=== PATIENT | male | born 1975 | race American Indian/Alaskan Native ===

== ENCOUNTER 2018-12-04 14:30 | Inpatient (IN) | payer MEDICARE ==
--- NOTE | 2018-12-04 16:47 | XRay Report ---
FINAL REPORT EXAM: XR NECK SOFT TISSUE HISTORY: foreign body ingestion TECHNIQUE: Frontal and lateral views of the neck Comparison: None FINDINGS: There is no evidence of radiopaque foreign body. There is the appearance of increased thickness of the epiglottis. Whether not this is real or artifac t is unclear. There is the appearance of increased soft tissue density in the region of the floor of the mouth. A m ass in this region needs to be considered. The bony structures are notable for ossification of the anterior longitudinal ligament and multiple l evels. IMPRESSION: 1. No plain film evidence of radiopaque foreign body. 2. Appearance of increased soft tissue density in the region of the floor of the mouth and increased thickness of the epiglottis. CT of the neck would be helpful for further evaluation of these findings.
--- NOTE | 2018-12-04 16:52 | XRay Report ---
FINAL REPORT EXAM: XR ABD SERIES W CXR 1V HISTORY: foreign body patient says he swallowed a pencil. TECHNIQUE: Frontal view of the chest and frontal views of the abdomen and pelvis in the supine and u pright positions. Comparison: X-ray neck also performed today FINDINGS: X-ray chest: There is no evidence of infiltrate, pneumothorax or pleural fluid collection. The cardiac silhouette appears to be enlarged. This may be exaggerated by portable technique. The thoracic aorta and bony structures are unremarkable. X-ray abdomen and pelvis: There is no evidence of radiopaque foreign body. The bowel gas pattern is nonspecific with air in mildly distended loops of small bowel and colon with air-fluid levels on the upright view. There is a moderate to marked amount of stool in the ascending colon and in the rectum. Scattered air-fluid levels are demonstrated on the upright view. There is no evidence of pneumoperitoneum. IMPRESSION: 1. No evidence of an acute pulmonary process. 2. Nonspecific bowel gas pattern. 3. No evidence of radiopaque foreign body. 4. Moderate to marked amount of stool in the ascending colon and rectum.
--- NOTE | 2018-12-04 17:41 | Emergency Department Report ---
- General Chief complaint: Skin/Abscess/Foreign Body Stated complaint: MENTAL HEALTH Time Seen by Provider: 12/04/18 16:24 Source: patient, EMS Mode of arrival: Stretcher Limitations: No Limitations - History of Present Illness Initial comments: 44-year-old male with a past medical history hypertension, schizophrenia, and bipolar disorder presents to the Hospital stating that he swallowed a golf pencil within the last hour prior to arrival. It was a short golf pencil without an eraser. Patient states he swallowed it because he was mad. He is currently undergoing psychiatric treatment at [facility] for suicidal ideation with plan. Patient complains of a sore throat. He is able to speak clearly, denies shortness of breath, able to swallow his secretions. He also complains of some mild epigastric pain. - Related Data Allergies Allergy/AdvReac Type Severity Reaction Status Date / Time No Known Allergies Allergy Verified 12/04/18 15:21 Abscess Boil HPI - HPI Chief Complaint: Skin/Abscess/Foreign Body Stated Complaint: MENTAL HEALTH Time Seen by Provider: 12/04/18 16:24 Allergies/Adverse Reactions: Allergies Allergy/AdvReac Type Severity Reaction Status Date / Time No Known Allergies Allergy Verified 12/04/18 15:21 ED Review of Systems ROS: Stated complaint: MENTAL HEALTH Other details as noted in HPI Comment: All other systems reviewed and negative ED Past Medical Hx - Past Medical History Previous Medical History?: Yes Hx Hypertension: Yes Hx Psychiatric Treatment: Yes - Social History Smoking Status: Never Smoker Substance Use Type: None ED Physical Exam - General Limitations: No Limitations - Other Other exam information: General: No limitations, patient is alert in no acute distress Head exam: Atraumatic, normocephalic Eyes exam: Normal appearance, pupils equal reactive to light, extraocular movements intact ENT: Moist mucous membrane, normal oropharynx Neck exam: Normal inspection, full range of motion, no meningismus, no stridor Respiratory exam: Clear to auscultation bilateral, no wheezes, rales, crackles Cardiovascular: Normal rate and rhythm, normal heart sounds Abdomen: Soft, nondistended, mild epigastric tenderness, with normal bowel sounds, no rebound, or guarding Extremity: Full range of motion normal inspection no deformity Back: Normal Inspection, full range of motion, no tenderness Neurologic: Alert, oriented x3, cranial nerves intact, no motor or sensory deficit Psychiatric: normal affect, normal mood Skin: Warm, dry, intact ED Course Vital Signs 12/04/18 12/04/18 12/04/18 14:41 16:44 17:33 Temperature 98.5 F Pulse Rate 86 82 76 Respiratory 16 18 18 Rate Blood Pressure 149/90 Blood Pressure 172/111 176/118 [Right] O2 Sat by Pulse 98 99 96 Oximetry 12/04/18 12/04/18 12/04/18 19:15 20:06 20:16 Temperature 98.7 F 98.3 F 98.7 F Pulse Rate 98 H 63 98 H Respiratory 13 18 13 Rate Blood Pressure 163/96 163/103 163/96 Blood Pressure [Right] O2 Sat by Pulse 100 100 100 Oximetry 12/04/18 12/04/18 12/04/18 20:21 20:36 20:53 Temperature Pulse Rate 54 L 60 52 L Respiratory 23 26 H 24 Rate Blood Pressure 181/128 138/85 156/98 Blood Pressure [Right] O2 Sat by Pulse 100 100 Oximetry 12/04/18 12/04/18 12/04/18 21:04 21:16 21:30 Temperature Pulse Rate 53 L 61 58 L Respiratory 13 16 16 Rate Blood Pressure 157/110 157/110 157/110 Blood Pressure [Right] O2 Sat by Pulse Oximetry 12/04/18 12/04/18 12/04/18 21:46 22:00 22:16 Temperature Pulse Rate 60 61 69 Respiratory 22 19 26 H Rate Blood Pressure 151/112 151/112 158/100 Blood Pressure [Right] O2 Sat by Pulse Oximetry 12/04/18 12/04/18 12/04/18 22:30 22:46 23:00 Temperature Pulse Rate 68 83 92 H Respiratory 14 21 26 H Rate Blood Pressure 158/100 158/100 167/99 Blood Pressure [Right] O2 Sat by Pulse Oximetry - Consultations Consultation #2: 12/04/18 19:16 Dr carrillo contacted prior to ct imaging, endoscopy team at the bedside Consultation #3: 12/04/18 20:17 case d/w Dr Noe gen surgeon. will consult - EJ/Peripheral Line Neck R Time Out Performed: Yes Indications: nurses unable to establis Skin Cleansed in Sterile Fashion: Yes Size: 20 Dressing Placed: Tegaderm, tape Patient Tolerated Procedure: well ED Medical Decision Making - Lab Data Result diagrams: 12/04/18 18:27 12/04/18 18:27 Lab Results 12/04/18 12/04/18 Range/Units 18:27 18:27 WBC 4.4 L (4.5-11.0) K/mm3 RBC 4.57 (3.65-5.03) M/mm3 Hgb 12.5 (11.8-15.2) gm/dl Hct 37.6 (35.5-45.6) % MCV 82 L (84-94) fl MCH 28 (28-32) pg MCHC 33 (32-34) % RDW 16.4 H (13.2-15.2) % Plt Count 184 (140-440) K/mm3 Lymph % (Auto) 36.4 H (13.4-35.0) % [place] % (Auto) 9.8 H (0.0-7.3) % Eos % (Auto) 2.2 (0.0-4.3) % Baso % (Auto) 0.6 (0.0-1.8) % Lymph # 1.6 (1.2-5.4) K/mm3 [place] # 0.4 (0.0-0.8) K/mm3 Eos # 0.1 (0.0-0.4) K/mm3 Baso # 0.0 (0.0-0.1) K/mm3 Seg Neutrophils % 51.0 (40.0-70.0) % Seg Neutrophils # 2.2 (1.8-7.7) K/mm3 Sodium 140 (137-145) mmol/L Potassium 3.8 (3.6-5.0) mmol/L Chloride 102.5 (98-107) mmol/L Carbon Dioxide 27 (22-30) mmol/L Anion Gap 14 mmol/L BUN 10 (9-20) mg/dL Creatinine 1.2 (0.8-1.5) mg/dL Estimated GFR > 60 ml/min BUN/Creatinine Ratio 8 % Glucose 81 (75-100) mg/dL Calcium 8.8 (8.4-10.2) mg/dL - Radiology Data Radiology results: report reviewed FINAL REPORT EXAM: XR NECK SOFT TISSUE HISTORY: foreign body ingestion TECHNIQUE: Frontal and lateral views of the neck Comparison: None FINDINGS: There is no evidence of radiopaque foreign body. There is the appearance of increased thickness of the epiglottis. Whether not this is real or artifact is unclear. There is the appearance of increased soft tissue density in the region of the floor of the mouth. A mass in this region needs to be considered. The bony structures are notable for ossification of the anterior longitudinal ligament and multiple levels. IMPRESSION: 1. No plain film evidence of radiopaque foreign body. 2. Appearance of increased soft tissue density in the region of the floor of the mouth and increased thickness of the epiglottis. CT of the neck would be helpful for further evaluation of these findings. FINAL REPORT EXAM: XR ABD SERIES W CXR 1V HISTORY: foreign body patient says he swallowed a pencil. TECHNIQUE: Frontal view of the chest and frontal views of the abdomen and pelvis in the supine and upright positions. Comparison: X-ray neck also performed today FINDINGS: X-ray chest: There is no evidence of infiltrate, pneumothorax or pleural fluid collection. The cardiac silhouette appears to be enlarged. This may be exaggerated by portable technique. The thoracic aorta and bony structures are unremarkable. X-ray abdomen and pelvis: There is no evidence of radiopaque foreign body. The bowel gas pattern is nonspecific with air in mildly distended loops of small bowel and colon with air-fluid levels on the upright view. There is a moderate to marked amount of stool in the ascending colon and in the rectum. Scattered air-fluid levels are demonstrated on the upright view. There is no evidence of pneumoperitoneum. IMPRESSION: 1. No evidence of an acute pulmonary process. 2. Nonspecific bowel gas pattern. 3. No evidence of radiopaque foreign body. 4. Moderate to marked amount of stool in the ascending colon and rectum. FINAL REPORT EXAM: CT NECK WO CON HISTORY: swallowed a pencil, neck pain TECHNIQUE: Axial helical imaging through the neck with sagittal and coronal reformatted images obtained Comparison: X-ray neck and CT chest also performed today FINDINGS: There is no evidence of a cervical or facial mass or radiopaque foreign body. Th e There is no evidence of compromise of the airway. The epiglottis and aryepiglottic folds are normal thickness. The bony structures are notable for spondylitic change of the cervical spine with multiple level canal and foraminal stenosis. There is [id number] right maxillary sinus mucosal thickening. IMPRESSION: 1. No evidence of mass or radiopaque foreign body in the face/neck. 2. Cervical spondylosis. 3. Right maxillary sinus mucosal thickening. FINAL REPORT EXAM: CT CHEST WO CON HISTORY: swallowed a pencil TECHNIQUE: Axial helical imaging through the chest with sagittal and coronal reformatted images obtained. Comparison: X-ray chest also performed today FINDINGS: There is a small cluster of areas of nodular consolidation in the right upper lobe. At least 1 of these appears to demonstrate calcification. There is no evidence of pneumothorax or pleural fluid collection. The trachea and bronchi are patent. Heart appears to be enlarged. There is no evidence of intrathoracic adenopathy on this study without contrast. The visualized portion the upper abdomen is unremarkable. The bony structures are unremarkable. There are mildly prominent bilateral axillary lymph nodes. These are nonspecific in appearance but are most likely inflammatory in nature. There is no evidence of radiopaque foreign body. IMPRESSION: 1. No evidence of radiopaque foreign body. 2. Small cluster of pulmonary nodules in the right upper lobe at least 1 of which appears to demonstrate calcification. Whether not this is acute or chronic is unclear. Comparison with previous CT chest is recommended. Alternatively short-term follow-up CT chest would be helpful to evaluate for the static or dynamic nature of this finding. FINAL REPORT FINAL REPORT EXAM: CT ABDOMEN PELVIS WO CON HISTORY: swallowed a pencil TECHNIQUE: Axial helical imaging through the abdomen and pelvis with sagittal an d coronal reformatted images obtained. Comparison: None FINDINGS: The lung bases are notable for a cluster of nodular densities in the right upper lobe as was demonstrated on the recent CT. The liver, spleen, pancreas, kidneys and adrenal glands are unremarkable in appearance. The gallbladder is mildly distended and unremarkable. The bowel is normal caliber. The appendix is normal caliber. There is a moderate to marked amount of stool in the rectosigmoid colon. There is a moderate amount of stool in the ascending colon. There is a linear radiopaque foreign body in the 2nd portion the duodenum at the beginning of the duodenal sweep that measures approximately 4.9 centimeters by a 0.3 centimeters by 0.3 centimeters in size. There is linear radiopaque foreign body in the proximal to mid ileum that measures approximately 2.8 centimeters by 0.3 centimeters x 0.3 centimeters in size. There is no evidence of pneumoperitoneum or free fluid. The abdominal aorta is normal caliber. There is no evidence of pathologic intra-abdominal adenopathy by CT size criteria. The urinary bladder is moderately distended. There appears to be mild increased thickness of the urinary bladder wall. The prostate gland appears to be mildly enlarged (4.5 centimeters). The bony structures are unremarkable. IMPRESSION: 1. Two radiopaque foreign bodies in the small bowel. The larger radiopaque foreign body is the 2nd portion of the duodenum. The more distal radiopaque foreign body is in the proximal to mid ileum. There is no imaging evidence of bowel perforation. The above finding was discussed with Dr. Leiva the the at 7:23 p.m. 2. Moderate to marked amount of stool in the rectosigmoid colon. 3. Appearance of mild increased thickness of the urinary bladder wall and mild increased size of the prostate gland. - Medical Decision Making Dr Carrillo was able to remove the duodenum foreign body via endoscopy at the bedside. Recommends admission and surgery consultation. See his note. Patient presented to the ED was signed [id number] for suicidal ideation. It was originally signed on November 29. I resigned a 1013 for admission. - Differential Diagnosis retained foreign body, abrasion Critical Care Time: No Critical care attestation.: If time is entered above; I have spent that time in minutes in the direct care of this critically ill patient, excluding procedure time. ED Disposition Clinical Impression: Foreign body alimentary tract, Suicidal ideation, Schizophrenia, Bipolar disorder, Hypertension, Foreign body, swallowed Disposition: -09 OP ADMIT IP TO THIS HOSP Is pt being admited?: Yes Condition: Stable Time of Disposition: 20:30 (Dr. Cao/[facility])
[2018-12-04] MEDS ORDERED: NACL 0.9% 1000 ML 1,000 ML ONE (18:42)
[2018-12-04] MEDS ORDERED: WATER FOR IRRIG STERILE IR ONE (18:43)
[2018-12-04] MEDS ORDERED: XYLOCAINE 2% INFILTRATI ONE (18:57)
[2018-12-04] MEDS ORDERED: DIPRIVAN 10 MG/ML IV ONE ×2 (18:57)
[2018-12-04] MEDS ORDERED: NACL 0.9% 1000 ML 1,000 ML IV SCH (19:00)
--- NOTE | 2018-12-04 19:04 | Cat Scan Report ---
FINAL REPORT EXAM: CT CHEST WO CON HISTORY: swallowed a pencil TECHNIQUE: Axial helical imaging through the chest with sagittal and coronal reformatted images obta ined. Comparison: X-ray chest also performed today FINDINGS: There is a small cluster of areas of nodular consolidation in the right upper lobe. At least 1 of the se appears to demonstrate calcification. There is no evidence of pneumothorax or pleural fluid collection. The trachea and bronchi are patent. Heart appears to be enlarged. There is no evidence of intrathoracic adenopathy on this study without contrast. The visualized portion the upper abdomen is unremarkable. The bony structures are unremarkable. There are mildly prominent bilateral axillary lymph nodes. These are nonspecific in appearance but ar e most likely inflammatory in nature. There is no evidence of radiopaque foreign body. IMPRESSION: 1. No evidence of radiopaque foreign body. 2. Small cluster of pulmonary nodules in the right upper lobe at least 1 of which appears to demonstr ate calcification. Whether not this is acute or chronic is unclear. Comparison with previous CT chest is recommended. Alternatively short-term follow-up CT chest would be helpful to evaluate for the sta tic or dynamic nature of this finding.
[2018-12-04 19:06] LABS: Basophils % (Auto) 0.6 % (0.0-1.8); Eosinophils # (Auto) 0.1 K/mm3 (0.0-0.4); Eosinophils % (Auto) 2.2 % (0.0-4.3); Hematocrit 37.6 % (35.5-45.6); Hemoglobin 12.5 gm/dl (11.8-15.2); Lymphocytes # (Auto) 1.6 K/mm3 (1.2-5.4); Lymphocytes % (Auto) 36.4 % (13.4-35.0); Mean Corpuscular HGB Conc 33 % (32-34); Mean Corpuscular Volume 82 fl (84-94); Monocytes # (Auto) 0.4 K/mm3 (0.0-0.8); Monocytes % (Auto) 9.8 % (0.0-7.3); Platelet Count 184 K/mm3 (140-440); Red Blood Count 4.57 M/mm3 (3.65-5.03); Red Cell Distribution Width 16.4 % (13.2-15.2)
[2018-12-04 19:17] LABS: BUN/Creatinine Ratio 8; Blood Urea Nitrogen 10 mg/dL (9-20); Calcium 8.8 mg/dL (8.4-10.2); Hemolysis Index 8
--- NOTE | 2018-12-04 19:23 | Gastroenterology Consultation ---
History of Present Illness - Reason for Consult Consult date: 12/04/18 Foreign Body Ingestion Requesting physician: STEPHANIE CUENCA - History of Present Illness The patient is a 43 yo male involuntarily committed today to [place] for schizophrenia/threat of self-harm. He states that 1 hour prior to transfer to [facility] he ingested a pencil fragment. He is an unreliable historian, because there are at least 2 objects in the small bowel, but states he has only ingested one pencil fragment. He has no abdominal pain, N/V, fevers, or bloody emesis. He says this has happened before, but no records in [facility] for FB ingestion/removal. Past History Past Medical History: other (Schizophrenia) Past Surgical History: No surgical history Social history: smoking. denies: alcohol abuse Family history: no significant family history Medications and Allergies Allergies Allergy/AdvReac Type Severity Reaction Status Date / Time No Known Allergies Allergy Verified 12/04/18 15:21 Active Meds: Active Medications Sodium Chloride (Nacl 0.9% 1000 Ml) 1,000 mls @ 50 mls/hr IV DIRECT SANDEEP I HAVE REVIEWED AND RECONCILED MEDICATIONS Review of Systems - Review of Systems ROS unobtainable: due to mental status Exam - Constitutional Vital Signs: Temp Pulse Resp BP Pulse Ox 98.5 F 76 18 176/118 96 12/04/18 14:41 12/04/18 17:33 12/04/18 17:33 12/04/18 17:33 12/04/18 17:33 General appearance: no acute distress - EENT Eyes: PERRL, EOM intact ENT: poor dentition, no thrush, no ulcerations - Neck Neck: supple, normal ROM - Respiratory Respiratory effort: normal Respiratory: bilateral: CTA - Cardiovascular Rhythm: regular Heart Sounds: Present: S1 & S2 Extremities: no ischemia, No edema - Gastrointestinal General gastrointestinal: Present: soft, non-tender, non-distended - Neurologic Neurological: oriented to person - Psychiatric Psychiatric: no intact judgment & insight - Labs CBC & Chem 7: 12/04/18 18:27 12/04/18 18:27 Lab Results: Laboratory Results - last 24 hr 12/04/18 12/04/18 18:27 18:27 WBC 4.4 L RBC 4.57 Hgb 12.5 Hct 37.6 MCV 82 L MCH 28 MCHC 33 RDW 16.4 H Plt Count 184 Lymph % (Auto) 36.4 H [place] % (Auto) 9.8 H Eos % (Auto) 2.2 Baso % (Auto) 0.6 Lymph # 1.6 [place] # 0.4 Eos # 0.1 Baso # 0.0 Seg Neutrophils % 51.0 Seg Neutrophils # 2.2 Sodium 140 Potassium 3.8 Chloride 102.5 Carbon Dioxide 27 Anion Gap 14 BUN 10 Creatinine 1.2 Estimated GFR > 60 BUN/Creatinine Ratio 8 Glucose 81 Calcium 8.8 Assessment and Plan - Patient Problems (1) Foreign body alimentary tract Current Visit: Yes Status: Acute Plan to address problem: - Will attempt EGD with removal of proximal (duodenal) object, but distal object will need to pass (or be surgically removed). - See Op Report for recommendations re: bowel prep/surgical consult/etc. - NPO for now, and IV fluid hydration.
--- NOTE | 2018-12-04 19:43 | Cat Scan Report ---
FINAL REPORT EXAM: CT ABDOMEN PELVIS WO CON HISTORY: swallowed a pencil TECHNIQUE: Axial helical imaging through the abdomen and pelvis with sagittal and coronal reformatte d images obtained. Comparison: None FINDINGS: The lung bases are notable for a cluster of nodular densities in the right upper lobe as was demonstr ated on the recent CT. The liver, spleen, pancreas, kidneys and adrenal glands are unremarkable in appearance. The gallbladder is mildly distended and unremarkable. The bowel is normal caliber. The appendix is normal caliber. There is a moderate to marked amount of stool in the rectosigmoid colon. There is a moderate amount of stool in the ascending colon. There is a linear radiopaque foreign body in the 2nd portion the duodenum at the beginning of the duo denal sweep that measures approximately 4.9 centimeters by a 0.3 centimeters by 0.3 centimeters in si ze. There is linear radiopaque foreign body in the proximal to mid ileum that measures approximately 2.8 centimeters by 0.3 centimeters x 0.3 centimeters in size. There is no evidence of pneumoperitoneum or free fluid. The abdominal aorta is normal caliber. There is no evidence of pathologic intra-abdominal adenopathy by CT size criteria. The urinary bladder is moderately distended. There appears to be mild increased thickness of the urin troy bladder wall. The prostate gland appears to be mildly enlarged (4.5 centimeters). The bony structures are unremarkable. IMPRESSION: 1. Two radiopaque foreign bodies in the small bowel. The larger radiopaque foreign body is the 2nd po rtion of the duodenum. The more distal radiopaque foreign body is in the proximal to mid ileum. There is no imaging evidence of bowel perforation. The above finding was discussed with Dr. Benjamin at 7:23 p.m. 2. Moderate to marked amount of stool in the rectosigmoid colon. 3. Appearance of mild increased thickness of the urinary bladder wall and mild increased size of the prostate gland.
--- NOTE | 2018-12-04 20:08 | Cat Scan Report ---
FINAL REPORT EXAM: CT NECK WO CON HISTORY: swallowed a pencil, neck pain TECHNIQUE: Axial helical imaging through the neck with sagittal and coronal reformatted images obtai batsheva Comparison: X-ray neck and CT chest also performed today FINDINGS: There is no evidence of a cervical or facial mass or radiopaque foreign body. The There is no evidence of compromise of the airway. The epiglottis and aryepiglottic folds are normal thickness. The bony structures are notable for spondylitic change of the cervical spine with multiple level tatiana l and foraminal stenosis. There is [id number] right maxillary sinus mucosal thickening. IMPRESSION: 1. No evidence of mass or radiopaque foreign body in the face/neck. 2. Cervical spondylosis. 3. Right maxillary sinus mucosal thickening.
--- NOTE | 2018-12-04 20:12 | Post Operative Note ---
Pre-op diagnosis: Foreign body ingestion Post-op diagnosis: same Findings: 1. Partial pencil in 4th portion of duodenum (sharp end and approx 3 inches); bitten off at end - Removed with snare in one piece without trauma 2. Otherwise normal upper GI tract Procedure: EGD with foreign body removal Anesthesia: MAC Surgeon: KOLBY WALDEN Estimated blood loss: none Pathology: none Specimen disposition: other (N/A) Condition: stable Disposition: observation (Recs: 1. 23 hour obs admit. 2. Bowel prep with magne sium citrate. 3. Clear liquid diet to promote motility. 4. Surgical consult. 5. Repeat CT in 24 hours to see if long/sharp object (?rest of pencil versus writing instrument) has passed. 6. Senakot for severe constipation.)
[2018-12-04] MEDS ORDERED: CITRATE OF MAGNESIA PO ONE (20:17)
--- NOTE | 2018-12-04 20:23 | Anesthesia Consultation ---
Anesthesia Consult and Med Hx Date of service: 12/04/18 - Airway Anesthetic Teeth Evaluation: Good ROM Head & Neck: Adequate Mental/Hyoid Distance: Inadequate Mallampati Class: Class III Intubation Access Assessment: Possibly Difficult - Pulmonary Exam CTA: Yes - Cardiac Exam Cardiac Exam: RRR - Pre-Operative Health Status ASA Pre-Surgery Classification: ASA3, Emergency Proposed Anesthetic Plan: MAC - Pulmonary Hx Respiratory Symptoms: No SOB: No - Cardiovascular System Hx Hypertension: Yes Hx Heart Attack/AMI: No - Central Nervous System Hx Seizures: No CVA: No Hx Psychiatric Problems: Yes (schizophrenia; suicidal ideations) - Endocrine Hx Renal Disease: No Hx Liver Disease: No Hx Insulin Dependent Diabetes: No Hx Non-Insulin Dependent Diabetes: No - Other Systems Hx Obesity: Yes - Additional Comments Anesthesia Medical History Comments: Plan EGD for foreign body ingestion (pencil) with possible second object further along in GI tract. Patient is unvoluntarily admitted to psych facility and unable to consent for himself. Unable to reach NOK (mother) after multiple attempts. Agree with proceduralist that case is emergent and will proceed with MAC anesthetic. Anesthetic plan discussed with patient.
--- NOTE | 2018-12-04 20:24 | Anesthesia Day of Surgery ---
Anesthesia Day of Surgery - Day of Surgery Patient Examined: Yes Patient H&P Reviewed: Yes Patient is NPO: Yes
--- NOTE | 2018-12-04 20:57 | Operative Report ---
PROCEDURE PERFORMED: Esophagogastroduodenoscopy with foreign body removal. PREOPERATIVE DIAGNOSIS: Foreign body ingestion. POSTOPERATIVE DIAGNOSES: Foreign body ingestion. ENDOSCOPIST: Avi Minor MD INSTRUMENT: Obsorb video endoscope. MEDICATIONS: MAC anesthesia by Anesthesia Services. COMPLICATIONS: No apparent complications. ESTIMATED BLOOD LOSS: Minimal. SPECIMENS: No specimen sent to laboratory, but a foreign body was removed from the patient. IMPLANTS: None. ASSISTANTS: None. CONDITION AT COMPLETION: Stable. TECHNIQUE: The procedure was done as an emergency unconsented procedure because no family was available and the patient was poorly controlled, schizophrenic, currently under 1013/involuntary committal to [facility]. The patient was placed in left lateral decubitus position. The above sedative medications were given. His vital signs remained stable throughout the procedure. The upper endoscope was advanced from the mouth to the third portion of the duodenum under direct visualization. At that point, part of a pencil could be visualized at the junction of the fourth portion and the proximal jejunum. We then exchanged for a pediatric colonoscope and this was advanced into the fourth portion of the duodenum. The tip of the pencil was grasped using a snare and removed through the upper GI tract in one piece. The procedure was then terminated. FINDINGS: 1. A partial pencil fragment noted in the fourth portion of the duodenum (the pencil fragment was from the sharp and approximately 3 inches proximal); the end of the pencil appeared to have been bitten off. Subsequently, the pencil was removed in one piece with using a snare device without trauma. 2. Otherwise, normal upper GI tract. RECOMMENDATIONS: 1. 23-hour observation admission. 2. Bowel prep with magnesium citrate. 3. Clear liquid diet to promote intestinal motility. 4. Surgical consult. 5. Repeat CT scan in 24 hours to see if the long/sharp object in the distal jejunum has passed into the colon; this was questionably the rest of the pencil versus a separate writing instrument. 6. Senokot daily therapy for chronic constipation. JOB# [id number] KHARI/NTS
[2018-12-04] MEDS: SENOKOT S PO SCH (21:49)
[2018-12-04] MEDS ORDERED: APRESOLINE ONE (22:19)
[2018-12-04] MEDS ORDERED: ZOFRAN IV PRN (22:22)
[2018-12-04] MEDS ORDERED: APRESOLINE IV ONE (22:23)
[2018-12-04] MEDS ORDERED: ATIVAN IV ONE (23:01)
[2018-12-04] MEDS ORDERED: ATIVAN ONE (23:05)
--- NOTE | 2018-12-05 06:13 | History and Physical Report ---
CHIEF COMPLAINT: Swallowing of foreign body, notably pencil. HISTORY OF PRESENT ILLNESS: The patient is a 43-year-old male with past history of schizophrenia, undergoing psychiatric treatment at [facility] for suicidal ideation with plan. The patient said he swallowed one golf pencil because he was mad, there was no history of shortness of breath. There was no history of chest pain, but there is history of mild epigastric pain. The patient is able to swallow secretions. When he came to the Emergency Room, and also able to talk. There is also a history of sore throat with no history of hematemesis or hematochezia. PAST MEDICAL HISTORY: Pertinent for hypertension, schizophrenia. PAST SURGICAL HISTORY: Unremarkable. FAMILY HISTORY: Noncontributory. SOCIAL HISTORY: The patient is at the [facility], does not smoke, does not drink alcohol and does not use illicit drugs. MEDICATIONS: The patient's home medications are not known. ALLERGIES: There are no known drug allergies. REVIEW OF SYSTEMS: CONSTITUTIONAL: There is no fever, no chills, no diaphoresis. HEENT: There is no headache, but there is a sore throat. CARDIOVASCULAR SYSTEM: There is no chest pain or orthopnea. RESPIRATORY SYSTEM: There is no shortness of breath or cough. GASTROINTESTINAL SYSTEM: Epigastric abdominal pain present. No nausea, no vomiting, no diarrhea, constipation and no hematemesis or hematochezia. NEUROLOGICAL SYSTEM: There is no numbness, no dizziness, no altered mental status. MUSCULOSKELETAL SYSTEM: There is no joint pain or swelling. DERMATOLOGICAL SYSTEM: There is no skin rash or itching. GENITOURINARY SYSTEM: There is no dysuria, hematuria or flank pain. Rest of system review is normal. PHYSICAL EXAMINATION: GENERAL: At the time of exam, the patient was found to be alert, oriented x 3 and not in acute distress. INITIAL VITAL SIGNS: Shows temperature of 98.5 degrees Fahrenheit, pulse of 86, respirations 16, blood pressure 149/90, O2 sat of 98% on room air. HEENT: Show pupils to be equal, round, reactive to light and accommodating. Extraocular muscles are intact. NECK: Supple with no JVD or carotid bruit. CARDIOVASCULAR SYSTEM: Show normal first and second heart sounds with no gallops or murmurs. RESPIRATORY SYSTEM: Show good air entry on both sides of the lung with no abnormal breath sounds. GASTROINTESTINAL SYSTEM: Show abdomen to be full, soft with tenderness in the left upper quadrant area with no rebound tenderness, no rigidity or guarding was elicited. NEUROLOGICAL SYSTEM: Showed no focal deficit. MUSCULOSKELETAL SYSTEM: Show no joint swelling or tenderness. DERMATOLOGICAL SYSTEM: Showing no skin rash. GENITOURINARY SYSTEM: Showing no costovertebral angle tenderness. PERTINENT LABORATORY AND IMAGING STUDIES: The patient had the following imaging studies done. The patient has soft tissue neck x-ray and these shows no plain film evidence of radiopaque foreign body. There is appearance of increased soft tissue density in the region of the floor of the mouth and increased thickness of the epiglottis and also the patient had CT of the neck done that shows no evidence of mass or radiopaque foreign body in the face, neck. There is finding of cervical spondylosis and right maxillary sinus mucosa thickening and the patient had chest and abdominal x-ray done, which shows no evidence of an acute pulmonary process and nonspecific bowel gas pattern with no evidence of radiopaque foreign body seen. There is moderate to marked amount of soft stool in the ascending colon and rectum. The patient had chest CT done that shows no evidence of radiopaque foreign body. There is finding of small clusters of pulmonary nodules in the right upper lobe, which appears to the most straight calcification. The radiology said he is not sure whether this is acute or chronic and said to compare with previous CT report. The patient also has CT of the abdomen and pelvis done that shows 2 radiopaque foreign bodies in the small bowel. The larger radiopaque foreign body is in the second portion of the duodenum and the more distal radiopaque foreign body was found in the proximal to mid ileum. There is no imaging evidence of bowel perforation according to the radiologist. There is also finding of moderate to marked amount of stool in the rectosigmoid colon and finding of mild increased thickness of the urinary bladder wall and mild increased size of the prostate gland. LABORATORY RESULTS: The patient has CBC done with low white count of 4.4, normal hemoglobin and normal hematocrit. Rest of CBC differential shows high lymphocyte count of 36.4% and high monocyte count of 9.8%. The patient's chemistry was unremarkable. DIAGNOSES: Foreign body, (pencil) in the stomach. PLAN OF ACTION: 1. The patient had an EGD done already by the online education manager after presenting to the Emergency Room . 2. The patient will be admitted to medical floor. 3. The patient will continue Gastroenterology consult with Dr. Avi Minor and will continue surgical consult with Dr. Florecita Noe. 4. The patient will be on clear liquid diet as ordered by the Gastroenterology and will be on IV normal saline running at 100 mL an hour. 5. The patient has already had magnesium citrate 300 mg ordered by the Gastroenterology and will be on IV Zofran 4 mg every 8 hours as needed for nausea and vomiting. Also, the patient will have sennosides/docusate sodium 2 tablets by mouth every night as requested and ordered by the online education manager. 6. DVT prophylaxis will be through sequential compressive device. JOB# [id number] OCN/TAWANNA KENNEDY
[2018-12-05] MEDS ORDERED: MORPHINE IV PRN ×2 (13:52→14:44)
--- NOTE | 2018-12-05 13:53 | Progress Note ---
Assessment and Plan Assessment and plan: --Foreign Body ingestion; Status post EGD and removal of the duodenal object, Distant object made to pass, surgery evaluation if needed --Hypertension; hydralazine, when necessary medications Closely monitor --Obesity; BMI 33.2 Patient needs weight reduction when medically stable --History of schizophrenia; management per psych --History of suicidal ideation/acute psychosis 1013 status, suicide watch, psych evaluation --DVT prophylaxis; Lovenox --Continue 1013 status Follow psych evaluation and recommendations Plan of care is reviewed with the patient's nurse History Interval history: Patient seen and examined medical records reviewed Admitted with found body ingestion, suicidal ideation s/p EGD and removal of FB Patient is agitated and excessive Confused Vital signs noted Hospitalist Physical - Constitutional Vitals: Temp Pulse Resp BP Pulse Ox 98.7 F 86 22 159/113 97 12/04/18 20:16 12/04/18 23:30 12/04/18 23:30 12/04/18 23:30 12/04/18 23:30 General appearance: Present: mild distress, obese, other (agitated ) - EENT Eyes: Present: PERRL, EOM intact - Neck Neck: Present: supple, normal ROM - Respiratory Respiratory effort: normal Respiratory: bilateral: diminished, negative: rales, rhonchi, wheezing - Cardiovascular Rhythm: regular Heart Sounds: Present: S1 & S2 - Extremities Extremities: no ischemia, No edema - Abdominal General gastrointestinal: soft, non-tender, non-distended, distended - Integumentary Integumentary: Present: clear, warm - Psychiatric Psychiatric: appropriate mood/affect, cooperative - Neurologic Neurologic: moves all extremities Results - Labs CBC & Chem 7: 12/04/18 18:27 12/04/18 18:27 Labs: Laboratory Last Values WBC 4.4 K/mm3 (4.5-11.0) L 12/04/18 18: RBC 4.57 M/mm3 (3.65-5.03) 12/04/18 18: Hgb 12.5 gm/dl (11.8-15.2) 12/04/18 18: Hct 37.6 % (35.5-45.6) 12/04/18 18: MCV 82 fl (84-94) L 12/04/18 18: MCH 28 pg (28-32) 12/04/18 18: MCHC 33 % (32-34) 12/04/18 18: RDW 16.4 % (13.2-15.2) H 12/04/18 18: Plt Count 184 K/mm3 (140-440) 12/04/18 18: Lymph % (Auto) 36.4 % (13.4-35.0) H 12/04/18 18:27 [place] % (Auto) 9.8 % (0.0-7.3) H 12/04/18 18: Eos % (Auto) 2.2 % (0.0-4.3) 12/04/18 18: Baso % (Auto) 0.6 % (0.0-1.8) 12/04/18 18: Lymph # 1.6 K/mm3 (1.2-5.4) 12/04/18 18: [place] # 0.4 K/mm3 (0.0-0.8) 12/04/18 18: Eos # 0.1 K/mm3 (0.0-0.4) 12/04/18 18: Baso # 0.0 K/mm3 (0.0-0.1) 12/04/18 18: Seg Neutrophils % 51.0 % (40.0-70.0) 12/04/18 18: Seg Neutrophils # 2.2 K/mm3 (1.8-7.7) 12/04/18 18: Sodium 140 mmol/L (137-145) 12/04/18 18: Potassium 3.8 mmol/L (3.6-5.0) 12/04/18 18: Chloride 102.5 mmol/L (98-107) 12/04/18 18: Carbon Dioxide 27 mmol/L (22-30) 12/04/18 18: Anion Gap 14 mmol/L 12/04/18 18: BUN 10 mg/dL (9-20) 12/04/18 18: Creatinine 1.2 mg/dL (0.8-1.5) 12/04/18 18: Estimated GFR > 60 ml/min 12/04/18 18: BUN/Creatinine Ratio 8 % 12/04/18 18: Glucose 81 mg/dL (75-100) 12/04/18 18:27 Calcium 8.8 mg/dL (8.4-10.2) 12/04/18 18:27
--- NOTE | 2018-12-05 13:57 | Gastroenterology Progress Note ---
Addendum entered and electronically signed by DWAYNE CONWAY MD 12/05/18 18:13: Patient seen and examined on 12/05/2017. Agree with A/P and recommendations as stated. s/p EGD with removal of partial pencil in the 4th portion of the duodenum. Possible 2nd object in the distal small bowel. Will follow with repeat CT abdomen tomorrow. will follow Original Note: Assessment and Plan 1.ingestion of foreign body -s/p EGD with removal of partial pencil in 4th portion of duodenum (sharp end and approx 3 inches); bitten off at end, otherwise normal upper GI tract -surgery consult pending -magnesium citrate given this am with no BMs so far today- will order golytely bowel prep -okay to continue clear liquids -KUB pending -consider repeat CT to see if long/sharp object (rest of pencil vs writing instrument?) has passed based on progress -continue supportive care -will follow Subjective Date of service: 12/05/18 Principal diagnosis: foreign body Interval history: Patient resting in bed w/o acute distress but noted to be tearful. Admits to continued lower abd pain that is unchanged from yesterday. No N/V. Drank all of magnesium citrate with no BMs as of yet. Refused abd exam. Objective - Constitutional Vitals: Temp Pulse Resp BP Pulse Ox 98.7 F 86 22 159/113 97 12/04/18 20:16 12/04/18 23:30 12/04/18 23:30 12/04/18 23:30 12/04/18 23:30 General appearance: no acute distress - Respiratory Respiratory: bilateral: CTA - Cardiovascular Rhythm: regular Heart Sounds: Present: S1 & S2 - Gastrointestinal General gastrointestinal: Present: other (patient refused abd exam) - Labs CBC & Chem 7: 12/04/18 18:27 12/04/18 18:27 Labs: Laboratory Results - last 24 hr 12/04/18 12/04/18 18:27 18:27 WBC 4.4 L RBC 4.57 Hgb 12.5 Hct 37.6 MCV 82 L MCH 28 MCHC 33 RDW 16.4 H Plt Count 184 Lymph % (Auto) 36.4 H Cross % (Auto) 9.8 H Eos % (Auto) 2.2 Baso % (Auto) 0.6 Lymph # 1.6 Cross # 0.4 Eos # 0.1 Baso # 0.0 Seg Neutrophils % 51.0 Seg Neutrophils # 2.2 Sodium 140 Potassium 3.8 Chloride 102.5 Carbon Dioxide 27 Anion Gap 14 BUN 10 Creatinine 1.2 Estimated GFR > 60 BUN/Creatinine Ratio 8 Glucose 81 Calcium 8.8
[2018-12-05] MEDS ORDERED: GOLYTELY PO ONE (14:08)
[2018-12-05] MEDS: ATIVAN IV PRN (16:03)
--- NOTE | 2018-12-05 16:07 | Consultation ---
History of Present Illness Consult date: 12/05/18 Chief complaint: ingested foreign object - History of present illness History of present illness: 43 yo M with hx of schizophrenia presented to ER after ingesting a foreign object. The patient is a poor historian. Apparently he swallowed a pencil to hurt himself. He is hearing voices. He states he does not feel well mentally and physically. He c/o mid abdominal pain. Mild nausea. No vomiting. He is tolerating clear liquids. He is passing flatus. He denies bowel movements. No f/c. He had an EGD yesterday by Dr. Minor who was able to remove the pencil from the duodenum. Ct scan showed an additional foreign object in the small bowel that was too distal to reach via EGD. No f/c, cp, sob. Past History Past Medical History: other (Schizophrenia) Past Surgical History: No surgical history Social history: smoking. denies: alcohol abuse Family history: no significant family history Medications and Allergies Allergies Allergy/AdvReac Type Severity Reaction Status Date / Time No Known Allergies Allergy Verified 12/04/18 15:21 Active Meds: Active Medications Haloperidol Lactate (Haldol) 2 mg IM Q6H PRN PRN Reason: Agitation Sodium Chloride (Nacl 0.9% 1000 Ml) 1,000 mls @ 100 mls/hr IV DIRECT [facility] Last Admin: 12/04/18 20:06 Dose: 100 mls/hr Documented by: Lorazepam (Ativan) 1 mg IV Q4H PRN PRN Reason: Agitation Morphine Sulfate (Morphine) 1 mg IV Q4H PRN PRN Reason: Pain, Moderate (4-6) Ondansetron HCl (Zofran) 4 mg IV Q8H PRN PRN Reason: Nausea And Vomiting Senna/Docusate Sodium (Senokot S) 2 tab PO QHS [facility] Last Admin: 12/04/18 21:49 Dose: 2 tab Documented by: Review of Systems All systems: negative (10 pt ROS performed and neg except for that listed in HPI) Exam Vital Signs Temp Pulse Resp BP Pulse Ox 98.5 F 86 16 149/90 98 12/04/18 14:41 12/04/18 14:41 12/04/18 14:41 12/04/18 14:41 12/04/18 14:41 Narrative exam: Gen: AAOx3. mild distress due to mental status CV: S1, S2+ resp: even and unlabored Abd: soft, ND, mild discomfort on palpation of mid abdomen. no r/r/g Ext: no c/c/e Results - Labs 12/04/18 18:27 12/04/18 18:27 Abnormal lab results 12/04/18 Range/Units 18:27 WBC 4.4 L (4.5-11.0) K/mm3 MCV 82 L (84-94) fl RDW 16.4 H (13.2-15.2) % Lymph % (Auto) 36.4 H (13.4-35.0) % [place] % (Auto) 9.8 H (0.0-7.3) % Diabetes panel 12/04/18 Range/Units 18:27 Sodium 140 (137-145) mmol/L Potassium 3.8 (3.6-5.0) mmol/L Chloride 102.5 (98-107) mmol/L Carbon Dioxide 27 (22-30) mmol/L BUN 10 (9-20) mg/dL Creatinine 1.2 (0.8-1.5) mg/dL Glucose 81 (75-100) mg/dL Calcium 8.8 (8.4-10.2) mg/dL Calcium panel 12/04/18 Range/Units 18:27 Calcium 8.8 (8.4-10.2) mg/dL Pituitary panel 12/04/18 Range/Units 18:27 Sodium 140 (137-145) mmol/L Potassium 3.8 (3.6-5.0) mmol/L Chloride 102.5 (98-107) mmol/L Carbon Dioxide 27 (22-30) mmol/L BUN 10 (9-20) mg/dL Creatinine 1.2 (0.8-1.5) mg/dL Glucose 81 (75-100) mg/dL Calcium 8.8 (8.4-10.2) mg/dL Adrenal panel 12/04/18 Range/Units 18:27 Sodium 140 (137-145) mmol/L Potassium 3.8 (3.6-5.0) mmol/L Chloride 102.5 (98-107) mmol/L Carbon Dioxide 27 (22-30) mmol/L BUN 10 (9-20) mg/dL Creatinine 1.2 (0.8-1.5) mg/dL Glucose 81 (75-100) mg/dL Calcium 8.8 (8.4-10.2) mg/dL - Imaging Abdominal x-ray: report reviewed, image reviewed CT scan - abdomen: report reviewed, image reviewed CT scan - pelvis: report reviewed, image reviewed Assessment and Plan 43 yo M with retained ingested foreign body Plan; 1. continue clear liquids 2. abd xray today shows RUQ foreign body vs artifact, large stool burden, nonobstructive pattern 3. CT scan A/P tomorrow to reeval foreign object 4. continue bowel prep/regimen 5. psych consult I tried to reach the patient's mother at his request. No answer and not able to leave voice message Thank you, please call with questions.
--- NOTE | 2018-12-05 16:13 | XRay Report ---
FINAL REPORT EXAM: XR ABDOMEN 1V AP HISTORY: foreign body TECHNIQUE: Frontal views of the abdomen and pelvis Comparison: CT abdomen and pelvis dated December 04, 2018 and x-ray abdomen dated December 04, 2018. FINDINGS: The bowel gas pattern is nonobstructive with air in mildly distended loops of small bowel and colon a nd a moderate to marked amount of stool in the rectum. There is a linear radiopaque density projected over the right upper quadrant which may represent the most proximal radiopaque foreign body demonstrated on the CT abdomen and pelvis of December 04, 2018. No other radiopaque foreign body is clearly demonstrated. There is no evidence of pneumoperitoneum nor organomegaly. IMPRESSION: 1. Possible demonstration of linear radiopaque foreign body in the right upper quadrant. Differential diagnosis includes artifact. The 2nd foreign body demonstrated on the recent CT is not demonstrated with this study. The radiopaque foreign bodies which are known to be pencils that the patient swallowed were not pritesh rly demonstrated with plain film imaging performed December 04, 2018. If further imaging is required, CT may be helpful for further evaluation.
[2018-12-05] MEDS ORDERED: APRESOLINE IV PRN (16:31)
[2018-12-05] MEDS: APRESOLINE PO SCH ×2 (22:00→23:25)
[2018-12-05] MEDS: SENOKOT S PO SCH (22:00)
[2018-12-06] MEDS: APRESOLINE PO SCH ×2 (07:29→14:23)
--- NOTE | 2018-12-06 09:11 | Progress Note ---
Assessment and Plan Assessment and plan: --Foreign Body ingestion; Status post EGD and removal of the duodenal object, Distant object made to pass, surgery and GI following repeat CT abdomen and pelvis no foreign bodies noted GI and surgery cleared for discharge --H/O suicidal ideation/acute psychosis/patient came from psych facility 1013 status, suicide watch, pending psych evaluation --Hypertension; hydralazine, when necessary medications Closely monitor --Obesity; BMI 33.2 Patient needs weight reduction when medically stable --History of schizophrenia; management per psych --DVT prophylaxis; Lovenox --Continue 1013 status --DC planning patient is medically stable for discharge Disposition per psych, Possible transfer to inpatient psych facility Plan of care is reviewed for the patient's nurse case management and psych Patient medically stable for discharge History Interval history: Patient seen and examined medical records reviewed Patient feels slightly better since contrast agitated and paranoid product safety lead at the bedside Vital signs noted Hospitalist Physical - Constitutional Vitals: Temp Pulse Resp BP Pulse Ox 97.6 F 62 24 169/102 98 12/05/18 22:50 12/05/18 22:50 12/05/18 22:50 12/05/18 22:50 12/05/18 22:50 General appearance: Present: no acute distress, well-nourished, obese, other (agitated ) - EENT Eyes: Present: PERRL, EOM intact - Neck Neck: Present: supple, normal ROM - Respiratory Respiratory effort: normal Respiratory: negative: rales, rhonchi, wheezing, other - Cardiovascular Rhythm: regular Heart Sounds: Present: S1 & S2 - Extremities Extremities: no ischemia, No edema - Abdominal General gastrointestinal: soft, non-tender, non-distended, normal bowel sounds - Integumentary Integumentary: Present: clear, warm - Psychiatric Psychiatric: appropriate mood/affect, agitated - Neurologic Neurologic: CNII-XII intact, moves all extremities Results - Labs CBC & Chem 7: 12/04/18 18:27 12/04/18 18:27 Labs: Laboratory Last Values WBC 4.4 K/mm3 (4.5-11.0) L 12/04/18 18:27 RBC 4.57 M/mm3 (3.65-5.03) 12/04/18 18:27 Hgb 12.5 gm/dl (11.8-15.2) 12/04/18 18: Hct 37.6 % (35.5-45.6) 12/04/18 18: MCV 82 fl (84-94) L 12/04/18 18: MCH 28 pg (28-32) 12/04/18 18: MCHC 33 % (32-34) 12/04/18 18: RDW 16.4 % (13.2-15.2) H 12/04/18 18: Plt Count 184 K/mm3 (140-440) 12/04/18 18: Lymph % (Auto) 36.4 % (13.4-35.0) H 12/04/18 18: [place] % (Auto) 9.8 % (0.0-7.3) H 12/04/18 18: Eos % (Auto) 2.2 % (0.0-4.3) 12/04/18 18: Baso % (Auto) 0.6 % (0.0-1.8) 12/04/18 18: Lymph # 1.6 K/mm3 (1.2-5.4) 12/04/18 18: [place] # 0.4 K/mm3 (0.0-0.8) 12/04/18 18: Eos # 0.1 K/mm3 (0.0-0.4) 12/04/18 18: Baso # 0.0 K/mm3 (0.0-0.1) 12/04/18 18: Seg Neutrophils % 51.0 % (40.0-70.0) 12/04/18 18: Seg Neutrophils # 2.2 K/mm3 (1.8-7.7) 12/04/18 18: Sodium 140 mmol/L (137-145) 12/04/18 18: Potassium 3.8 mmol/L (3.6-5.0) 12/04/18 18: Chloride 102.5 mmol/L (98-107) 12/04/18 18: Carbon Dioxide 27 mmol/L (22-30) 12/04/18 18: Anion Gap 14 mmol/L 12/04/18 18: BUN 10 mg/dL (9-20) 12/04/18 18:27 Creatinine 1.2 mg/dL (0.8-1.5) 12/04/18 18:27 Estimated GFR > 60 ml/min 12/04/18 18:27 BUN/Creatinine Ratio 8 % 12/04/18 18:27 Glucose 81 mg/dL (75-100) 12/04/18 18:27 Calcium 8.8 mg/dL (8.4-10.2) 12/04/18 18:27
--- NOTE | 2018-12-06 11:35 | Cat Scan Report ---
CT ABDOMEN PELVIS WITHOUT CONTRAST: HISTORY: Retained foreign intestinal object followup. COMPARISON: 12/04/18. TECHNIQUE: Helical CT in 1.25mm intervals without IV contrast. Sagittal and coronal reconstructions. FINDINGS: The linear radiopaque foreign body is identified in the duodenum and mid to distal small bowel on 12/04/18 are no longer identified. The bowel loops are normal caliber and wall thickness. No evidence for perforation or inflammation. Normal appendix. The liver, biliary system, pancreas, spleen, kidneys, adrenal glands, aorta and bladder are unremarkable on noncontrast exam. Normal heart size. The lung bases are clear. The bony structures are intact. IMPRESSION: Previously described GI foreign bodies are no longer identified.
--- NOTE | 2018-12-06 12:58 | Progress Note ---
Assessment and Plan - Patient Problems (1) Foreign body alimentary tract Current Visit: Yes Status: Acute Plan to address problem: Pt stable. abdomen benign. follow-up CT no longer shows foreign body and there are no other abnormalities. Ok to advance diet and discharge from surgical perspective. Please call with questions. Time = 10min Subjective Date of service: 12/06/18 Patient Reports: Positive: feels better, pain is less, tolerating liquids well, bowel movement. Negative: nausea, vomiting Objective Vital Signs - 12hr 12/06/18 12:38 Temperature 98.4 F Pulse Rate 69 Respiratory 20 Rate Blood Pressure 181/90 O2 Sat by Pulse 97 Oximetry - General physical appearance well nourished, no distress, no pain, other (very pleasant) - Respiratory normal expansion, normal respiratory effort - Abdomen soft, not tender, not distended, not rebound, not guarding, not rigid - Labs 12/04/18 18:27 12/04/18 18:27
--- NOTE | 2018-12-06 13:45 | Consultation ---
History of Present Illness - Reason for Consult Consult date: 12/06/18 Reason for consult: Mental Health Evaluation Requesting physician: SONNY JULIO - Chief Complaint Chief complaint: "I'm hearing something" - History of Present Psychiatric Illness 44-year-old AA male who presented to the ER from [facility] for swallowing pieces of a pencil. Today the patient is calm during the assessment. He stated that he was transported to [facility] from [place], [place] because he was suicidal. He stated that he was hearing voices while at [facility] along with not liking the staff, so he swallowed pieces of a pencil. He stated, "I was tired of living to ." He would not confirm or deny that the voices commanded him to do that. He stated a hx of suicidal attempts in the past. He was asked several times about being suicidal and he wouldn't answer. He did deny HI"s and VH's. He stated that the voices are "pretty active now." He denies recreational drug use and alcohol consumption (etoh). Medications and Allergies Allergies Allergy/AdvReac Type Severity Reaction Status Date / Time No Known Allergies Allergy Verified 12/04/18 15:21 Active Meds: Active Medications Haloperidol Lactate (Haldol) 2 mg IM Q6H PRN PRN Reason: Agitation Hydralazine HCl (Apresoline) 25 mg PO Q8HR [facility] Last Admin: 12/06/18 07:29 Dose: Not Given Documented by: Hydralazine HCl (Apresoline) 10 mg IV Q4HR PRN PRN Reason: Hypertension Sodium Chloride (Nacl 0.9% 1000 Ml) 1,000 mls @ 100 mls/hr IV DIRECT [facility] Last Admin: 12/04/18 20:06 Dose: 100 mls/hr Documented by: Lorazepam (Ativan) 1 mg IV Q4H PRN PRN Reason: Agitation Last Admin: 12/05/18 16:03 Dose: 1 mg Documented by: Morphine Sulfate (Morphine) 1 mg IV Q4H PRN PRN Reason: Pain, Moderate (4-6) Ondansetron HCl (Zofran) 4 mg IV Q8H PRN PRN Reason: Nausea And Vomiting Senna/Docusate Sodium (Senokot S) 2 tab PO QHS [facility] Last Admin: 12/05/18 22:00 Dose: Not Given Documented by: Past psychiatric history - Past Medical History Past Medical History: hypertension Past Surgical History: No surgical history - past Psychiatric treatment and history psychiatric treatment history: Several inpatient psy setting in the past. Denies a fam psy hx. - Social History Social history: Lives alone Mental Status Exam - Vital signs Last Vital Signs Temp 98.4 F 12/06/18 12:38 Pulse 69 12/06/18 12:38 Resp 20 12/06/18 12:38 BP 181/90 12/06/18 12:38 Pulse Ox 97 12/06/18 12:38 - Exam Narrative exam: MSE: Appearance: calm Behavior: regular eye contact Speech: regular rate and tone Mood: "okay" Affect: constricted Thought Process: tangential Thought Content: denies HI's and VH's Motor Activity: sitting up in bed Cognition: A/O x3 Insight: poor Judgment: poor Results Result Diagrams: 12/04/18 18:27 12/04/18 18:27 All other labs normal. Assessment and Plan Assessment and plan: Impression: Unspecified Mood DO psy features. Today the patient is calm during the assessment. The patient would not confirm or deny SI's. DDx: Bipolar DO with psychosis, Schizoaffective DO Recommendation/Plan: Continue 1013 and start Abilify 5 mg PO daily for psychosis/mood and Cogentin 0.5 mg PO daily for EPS prevention. Discussed possible metabolic side effects of Abilify. Remove all objects from the patient's room that can be swallowed. Dispo: The patient will be referred to inpatient psy services once medically clear. Staffed with Dr Marquez.
[2018-12-06] MEDS: COGENTIN PO SCH (14:39)
[2018-12-06] MEDS: ABILIFY PO SCH (14:39)
--- NOTE | 2018-12-06 14:39 | Gastroenterology Progress Note ---
Addendum entered and electronically signed by DWAYNE CONWAY MD 12/06/18 18:23: Patient seen and examined. Agree with A/P stated. - CT abdomen today with no longer showing foreign body. - ok for discharge per GI standpoint. Original Note: Assessment and Plan 1.ingestion of foreign body -s/p EGD with removal of partial pencil in 4th portion of duodenum (sharp end and approx 3 inches); bitten off at end, otherwise normal upper GI tract -surgery following -golytely given yesterday with multiple BMs overnight and this am -repeat CT today no longer shows foreign body or no other abnormalities -clinically, patient is stable and abdomen is benign. No N/V. Tolerating clears -okay to advance diet and discharge per GI standpoint -will sign off, please call if needed Subjective Date of service: 12/06/18 Principal diagnosis: foreign body Interval history: No acute distress. Abd pain improved. Multiple BMs overnight and this am after completion of golytely. No N/V. Tolerating clears. Objective - Constitutional Vitals: Temp Pulse Resp BP Pulse Ox 98.4 F 69 20 181/90 97 12/06/18 12:38 12/06/18 12:38 12/06/18 12:38 12/06/18 12:38 12/06/18 12:38 General appearance: no acute distress, other (remains tearful) - Respiratory Respiratory: bilateral: CTA - Cardiovascular Rhythm: regular Heart Sounds: Present: S1 & S2 - Gastrointestinal General gastrointestinal: Present: soft, non-distended, normal bowel sounds - Labs CBC & Chem 7: 12/04/18 18:27 12/04/18 18:27
[2018-12-06] MEDS: HALDOL IM PRN ×2 (14:45→20:48)
[2018-12-06] MEDS: ATIVAN IV PRN (18:45)
[2018-12-06] MEDS ORDERED: GEODON IM ONE (21:22)
[2018-12-06] MEDS ORDERED: WATER FOR INJ (PF) ONE (21:57)
[2018-12-06] MEDS: SENOKOT S PO SCH (22:39)
[2018-12-07] MEDS: APRESOLINE PO SCH ×3 (06:58→14:24)
[2018-12-07] MEDS: ABILIFY PO SCH (11:38)
[2018-12-07] MEDS: COGENTIN PO SCH (11:38)
--- NOTE | 2018-12-07 13:01 | Progress Note ---
Subjective - Reason for Consult Consult date: 12/07/18 Reason for consult: Psychiatry Follow-up - Chief Complaint Chief complaint: "Hello" 44-year-old AA male who presented to the ER from [facility] for swallowing pieces of a pencil. Today the patient is calm during the assessment. He seem somewhat preoccupied. he pause before he answer questions. He stated that he was hearing voices last night. He would not confirm or deny AH's currently.. Per the staff, security had to be called last night because the patient was agitated. He denies SI/HI's and VH's. He would not confirm or deny AH's currently. He denies any side effects of his medications. Mental Status Exam - Vital signs Last Vital Signs Temp 98.6 F 12/07/18 12:04 Pulse 87 12/07/18 12:04 Resp 20 12/07/18 12:04 BP 141/95 12/07/18 12:04 Pulse Ox 94 12/07/18 12:04 - Exam Narrative exam: MSE: Appearance: calm Behavior: regular eye contact Speech: regular rate and tone Mood: preoccupied Affect: constricted Thought Process: tangential Thought Content: denies SI/HI's and VH's Motor Activity: sitting up in bed Cognition: A/O x3 Insight: poor Judgment: poor Assessment and Plan Impression: Unspecified Mood DO psy features. Today the patient is calm during the assessment. The patient is experiences perceptual disturbances. DDx: Bipolar DO with psychosis, Schizoaffective DO Recommendation/Plan: Continue 1013 and Abilify 5 mg PO daily for psychosis/mood and Cogentin 0.5 mg PO daily for EPS prevention. Discussed possible metabolic side effects of Abilify. Remove all objects from the patient's room that can be swallowed. Dispo: The patient was referred to inpatient psy services. Will staff with Dr Marquez.
--- NOTE | 2018-12-07 14:56 | Progress Note ---
Assessment and Plan Assessment and plan: --Foreign Body ingestion; Status post EGD and removal of the object, Distant object passed.Rpt CT abd,no foreign bodies noted GI and surgery cleared for discharge, advance diet --H/O suicidal ideation/acute psychosis/patient came from psych facility 1013 status, suicide watch, psych following, pending inpatient psych placement --Hypertension; hydralazine, when necessary medications Closely monitor --Obesity; BMI 33.2 Patient needs weight reduction when medically stable --History of schizophrenia; management per psych --DVT prophylaxis; Lovenox --Continue 1013 status Disposition: Medically stable for discharge Pending inpatient psych placement, Informed psych Plan of care is reviewed with the patient's nurse, case management Patient medically stable for discharge History Interval history: Patient seen and examined medical records reviewed No new events reported by the nursing staff GI and surgery cleared for discharge Awaiting inpatient psych placement Patient continues to hear voices Not in acute distress Safetysitter at the bedside Hospitalist Physical - Constitutional Vitals: Temp Pulse Resp BP Pulse Ox 98.6 F 87 20 141/95 94 12/07/18 12:04 12/07/18 12:04 12/07/18 12:04 12/07/18 12:04 12/07/18 12:04 General appearance: Present: no acute distress, well-nourished, obese, other (agitated ) - EENT Eyes: Present: PERRL, EOM intact - Neck Neck: Present: supple, normal ROM - Respiratory Respiratory effort: normal Respiratory: bilateral: diminished, negative: rales, rhonchi, wheezing - Cardiovascular Rhythm: regular Heart Sounds: Present: S1 & S2 - Extremities Extremities: no ischemia, No edema - Abdominal General gastrointestinal: soft, non-tender, non-distended, normal bowel sounds - Integumentary Integumentary: Present: clear, warm - Psychiatric Psychiatric: agitated, other ( psychotic/hallucinations) - Neurologic Neurologic: moves all extremities Results - Labs CBC & Chem 7: 12/04/18 18:27 12/04/18 18:27 Labs: Laboratory Last Values WBC 4.4 K/mm3 (4.5-11.0) L 12/04/18 18: RBC 4.57 M/mm3 (3.65-5.03) 12/04/18 18:27 Hgb 12.5 gm/dl (11.8-15.2) 12/04/18 18: Hct 37.6 % (35.5-45.6) 12/04/18 18: MCV 82 fl (84-94) L 12/04/18 18: MCH 28 pg (28-32) 12/04/18 18: MCHC 33 % (32-34) 12/04/18 18: RDW 16.4 % (13.2-15.2) H 12/04/18 18: Plt Count 184 K/mm3 (140-440) 12/04/18 18: Lymph % (Auto) 36.4 % (13.4-35.0) H 12/04/18 18: [place] % (Auto) 9.8 % (0.0-7.3) H 12/04/18 18: Eos % (Auto) 2.2 % (0.0-4.3) 12/04/18 18: Baso % (Auto) 0.6 % (0.0-1.8) 12/04/18 18: Lymph # 1.6 K/mm3 (1.2-5.4) 12/04/18 18: [place] # 0.4 K/mm3 (0.0-0.8) 12/04/18 18: Eos # 0.1 K/mm3 (0.0-0.4) 12/04/18 18: Baso # 0.0 K/mm3 (0.0-0.1) 12/04/18 18: Seg Neutrophils % 51.0 % (40.0-70.0) 12/04/18 18: Seg Neutrophils # 2.2 K/mm3 (1.8-7.7) 12/04/18 18: Sodium 140 mmol/L (137-145) 12/04/18 18: Potassium 3.8 mmol/L (3.6-5.0) 12/04/18 18: Chloride 102.5 mmol/L (98-107) 12/04/18 18: Carbon Dioxide 27 mmol/L (22-30) 12/04/18 18: Anion Gap 14 mmol/L 12/04/18 18: BUN 10 mg/dL (9-20) 12/04/18 18:27 Creatinine 1.2 mg/dL (0.8-1.5) 12/04/18 18: Estimated GFR > 60 ml/min 12/04/18 18: BUN/Creatinine Ratio 8 % 12/04/18 18: Glucose 81 mg/dL (75-100) 12/04/18 18: Calcium 8.8 mg/dL (8.4-10.2) 12/04/18 18:
--- NOTE | 2018-12-07 17:07 | Discharge Summary ---
Providers - Providers Date of Admission: 12/04/18 20:33 Date of discharge: 12/07/18 Attending physician: SONNY JULIO 12/04/18 20:17 Consult to Physician [CONS] Urgent Comment: Dr. Leiva spoke with Dr. Calix @ 2014 Consulting Provider: IMELDA CALIX Physician Instructions: Reason For Exam: foreign body in small bowel 12/04/18 20:34 Consult to Physician [CONS] Stat Comment: Dr. Leiva spoke with Dr. Walden @ 1743 Consulting Provider: KOLBY WALDEN Physician Instructions: Reason For Exam: swallowed fb 12/05/18 10:19 Consult to Mental Health [CONS] Routine Reason For Exam: [address] consult to:: JOHN Joel Notified:: [id number] yes Primary care physician: JESSICA GROVER Hospitalization Reason for admission: Foreign body ingestion/Suicidal ideation/Psychosis Condition: Stable Pertinent studies: CT of the abdomen and pelvis Soft tissue neck x-ray CT neck CT chest EGD removal of foreign body; Hospital course: 43 yo male patient with history of schizophrenia/threat of self-harm was transferred from [facility] with foreign body ingestion[ a pencil fragment] evaluated by GI and removed the foreign body, distant objects will closely monitor finally passed, repeat CT head scan did not show any foreign bodies,Patient is tolerating regular food, on 1012 status, evaluated by psych, today patient is comfortable, continues to have hallucinations agitated at times patient is medically stable to discharge and transfer to inpatient psych facility for further evaluation and management Patient is hemodynamically stable at discharge Discharge diagnoses; --Foreign Body ingestion;Status post EGD and removal of the object, Rpt CT abd,no foreign bodies noted, GI, surgery cleared for discharge --H/O suicidal ideation/acute psychosis/patient came from psych facility --Hypertension; hydralazine, when necessary medications --Obesity; BMI 33.2;Patient needs weight reduction when medically stable --History of schizophrenia; management per psych --DVT prophylaxis; Lovenox --Continue 1012 status Patient is medically stable to DC and transferred to inpatient psych facility Disposition: [id number]/[id number] PSY HOSP/PSY UNIT Time spent for discharge: 32 min Core Measure Documentation - Palliative Care Palliative Care/ Comfort Measures: Not Applicable - Core Measures Any of the following diagnoses?: none Exam - Constitutional Vitals: Temp Pulse Resp BP Pulse Ox 98.6 F 87 20 141/95 94 12/07/18 12:04 12/07/18 12:04 12/07/18 12:04 12/07/18 12:04 12/07/18 12:04 General appearance: Present: no acute distress, well-nourished - EENT Eyes: Present: PERRL, EOM intact - Neck Neck: Present: supple, normal ROM - Respiratory Respiratory effort: normal Respiratory: bilateral: diminished, negative: rales, rhonchi, wheezing - Cardiovascular Rhythm: regular Heart Sounds: Present: S1 & S2 - Extremities Extremities: no ischemia, No edema - Abdominal General gastrointestinal: Present: soft, non-tender, non-distended, normal bowel sounds - Integumentary Integumentary: Present: clear, warm - Musculoskeletal Musculoskeletal: strength equal bilaterally - Psychiatric Psychiatric: agitated, other (hallucinations) - Neurologic Neurologic: moves all extremities Plan Activity: other (1013) Diet: regular Additional Instructions: Transfer to inpatient psych facility for further evaluation and management. Follow-up CT chest in 3-6 months[to be reviewed by primary care physician] Follow up with: JESSICA GROVER MD [Primary Care Provider] - 3-5 Days
[2018-12-07 17:13] VITALS: BP 149/97
== END 2018-12-07 18:30 | DRG 394 ==
LOC: ED 14:30 → 3A 20:33
PROVIDERS: ADMIT Internal Medicine; ATTEND Internal Medicine
PROC: 0DC98ZZ Extirpation of Matter from Duodenum, Via Natural or Artificial Opening Endoscopic (ICD-10-PCS; principal; 2018-12-04)
DX: T18.2XXA Foreign body in stomach, initial encounter (principal); F23 Brief psychotic disorder; R45.851 Suicidal ideations; X58.XXXA Exposure to other specified factors, initial encounter; F31.9 Bipolar disorder, unspecified; I10 Essential (primary) hypertension; E66.9 Obesity, unspecified; Y93.89 Activity, other specified; Y92.89 Other specified places as the place of occurrence of the external cause; Y99.8 Other external cause status; Z68.34 Body mass index [BMI] 34.0-34.9, adult
CPT/HCPCS: 36415; 70360; 70490; 71250; 74018; 74022; 74176; 80048; 85025; 96361; 96374; 96375; G0378; J0360; J1630; J2060; J2270; J2704; J3486; J7030